=== PATIENT | male | born 1945 | race Caucasian/White ===

== ENCOUNTER → 2017-06-04 | Outpatient (CLI) | payer OTHER, BC ==
[~2017-06-04] MED LIST: A THRU Z SELEC1 EAC6 PO; ALEVE220 MG PO; ATENOLOL50 MG PO; BETA CAROT10000 UNIT PO; BETA CAROT25000 UNIT PO; CALTRATE 600 +1 EAC1 PO; CALTRATE 6001 TABLE1 PO; CENTRUM SILVER1 EAC3 PO; CHILD ASPIRIN81 M1 PO; COMPAZINE10 MG PO; CRANBERRY500 M3 PO; FISH OIL 1,0001 EAC7 PO; FISH OIL 1,2001 EAC4 PO; GLUCOSAMINE CO1 EAC1 PO; GLUCOSAMINE-CH1 EA27 PO; HYDROCODON-ACE1 EAC7 PO; HYDROCODON-ACE1 EAC9 PO; Hydrodiuril,Oretic,E PO; Keflex PO; LO-DOSE ASPIRIN81 M1 PO; LUTEIN-ZEAXANT1 EACH PO; LUTEIN20 MG PO; Normodyne,Trandate PO; OMEPRAZOLE20 MG PO; PriLOSEC PO; SIMVASTATIN20 MG PO; TAMSULOSIN HCL0.4 MG PO; TUMS500 MG PO; Ultram PO; VITAMIN C1000 MG PO; Vasotec PO; ZOHYDRO ER10 M1 PO; Zocor PO
== END | disposition home or self-care (01) ==
LOC: RAD 13:36
DX: M51.36 Other intervertebral disc degeneration, lumbar region (principal); M43.16 Spondylolisthesis, lumbar region; Z98.1 Arthrodesis status
CPT/HCPCS: 62304; 72132

== ENCOUNTER 2017-06-08 22:04 | Inpatient (IN) | payer OTHER, BC ==
[~2017-06-08] VITALS: Ht 188 cm; Wt 84.5 kg
[~2017-06-08 22:04] MED LIST changes: -HYDROCODON-ACE1 EAC9 PO; -ZOHYDRO ER10 M1 PO
[2017-06-09 06:00] VITALS: BP 147/91
[2017-06-09 06:00] LABS: HEMATOCRIT 44.4 % (38.0-50.0); HEMOGLOBIN 13.6 G/DL (12.5-16.6); MCH 24.8 PG (29.0-34.0); MCHC 30.6 G/DL (30.0-36.0); MCV 80.9 FL (86-99); RBC DIS.WIDTH-CV 13.9 % (11.8-14.6); RBC DIS.WIDTH-SD 40.8 % (39-53); RED BLOOD COUNT 5.49 M/uL (4.00-5.50); WHITE BLOOD COUNT 6.3 K/uL (4.1-10.2)
[2017-06-09] MEDS ORDERED: ZOHYDRO ER10 M1 PO (06:06)
[2017-06-09 06:14] LABS: PLATELET COUNT 208 K/uL (156-360)
[2017-06-09 06:28] LABS: CHLORIDE 99 MEQ/L (99-109); GFR ESTIMATE (CALCULATED) > 59 mL/min/ (58.99-99999); GLUCOSE 127 mg/dL (70-99); POTASSIUM 4.7 MEQ/L (3.7-5.4); SODIUM 139 MEQ/L (136-147); UREA NITROGEN (BUN) 16 mg/dL (9-23)
[2017-06-09 16:01] VITALS: BP 134/77
[2017-06-09 19:19] VITALS: BP 109/52
[2017-06-09 23:15] VITALS: BP 131/60
[2017-06-10 03:39] VITALS: BP 148/71
[2017-06-10 08:28] VITALS: BP 148/66
[2017-06-10] MEDS ORDERED: HYDROCODON-ACE1 EAC9 PO (08:30)
[2017-06-10 11:30] VITALS: BP 120/88
== END 2017-06-10 13:05 | disposition home or self-care (01) | DRG 460 ==
LOC: ENRESERV 22:04 → 2SOUTH 06-09 05:27 → ENRESERV 06-09 13:41 → 3EAST 06-09 15:41 → ENPENDDIS 06-10 08:32 → 3EAST 06-10 13:05
PROVIDERS: Neurological Surgery
PROC: 0SP004Z Removal of Internal Fixation Device from Lumbar Vertebral Joint, Open Approach (ICD-10-PCS; principal; 2017-06-09)
PROC: 01NB0ZZ Release Lumbar Nerve, Open Approach (ICD-10-PCS; principal; 2017-06-09)
PROC: 0SG00AJ Fusion of Lumbar Vertebral Joint with Interbody Fusion Device, Posterior Approach, Anterior Column, Open Approach (ICD-10-PCS; principal; 2017-06-09)
DX: M51.26 Other intervertebral disc displacement, lumbar region (principal); M48.061 Spinal stenosis, lumbar region without neurogenic claudication; M43.16 Spondylolisthesis, lumbar region; G62.9 Polyneuropathy, unspecified; I44.0 Atrioventricular block, first degree; I10 Essential (primary) hypertension; M81.0 Age-related osteoporosis without current pathological fracture; Z87.891 Personal history of nicotine dependence
CPT/HCPCS: 72100; 76000; 80048; 85027; 86850; 86900; 86901; J0690; J1100; J1170; J1200; J1580; J1885; J2405; J2710; J3010; J3370; J3480